=== PATIENT | male | born 1970 | race American Indian/Alaskan Native ===

== ENCOUNTER 2017-10-29 10:36 | Emergency (ER) | payer MEDICARE, MEDICAID ==
[2017-10-29 10:58] VITALS: BMI 37.5
[2017-10-29 11:02] VITALS: RESP 18; O2SAT 98
--- NOTE | 2017-10-29 12:01 | C.PDOC ---
History Of Present Illness Patient is a 47 y/o male, with a Hx of DM and paranoid schizophrenia, who presents to the ED with complaints of left foot pain and left testicular bump. Patient reports left foot pain began about 1 week ago and worsens with ambulation, denies puncture or discharge; reports testicular bump has been present for about 1 year which he is having trouble finding now. Denies any dysuria, penile discharge, testicular pain, or allergies at this time. Time Seen by Provider: 10/29/17 11:15 Chief Complaint (Nursing): Groin Pain History Per: Patient History/Exam Limitations: no limitations Onset/Duration Of Symptoms: Days (left foot pain x1 week; testicular bump x1 year) Current Symptoms Are (Timing): Still Present Recent travel outside of the [place]: No Past Medical History Reviewed: Historical Data, Nursing Documentation, Vital Signs Vital Signs: Last Vital Signs Temp 98 F 10/29/17 14:04 Pulse 76 10/29/17 14:04 Resp 18 10/29/17 14:04 BP 136/72 10/29/17 14:04 Pulse Ox 98 10/29/17 14:04 - Medical History PMH: Anxiety, Depression, Diabetes (new onset), Schizophrenia (PARANOID) Surgical History: No Surg Hx Family History: States: No Known Family Hx - Social History Hx Tobacco Use: No Hx Alcohol Use: No Hx Substance Use: No - Immunization History Hx Tetanus Toxoid Vaccination: No Hx Influenza Vaccination: No Hx Pneumococcal Vaccination: No Review Of Systems Except As Marked, All Systems Reviewed And Found Negative. Constitutional: Negative for: Fever, Chills Cardiovascular: Negative for: Chest Pain Respiratory: Negative for: Shortness of Breath Genitourinary: Positive for: Other (left testicular bump) Musculoskeletal: Positive for: Foot Pain (left) Physical Exam - Physical Exam Additional Physical Exam Comments: Constitutional: No acute distress. Head: Normocephalic. Atraumatic. Eyes: PERRL. ENT: Moist mucous membranes. Neck: Supple. Cardiovascular: Regular rate. Radial pulse 2+ bilaterally. Chest: No tenderness. Respiratory: Clear to auscultation bilaterally. GI: Soft. Nontender. Nondistended. Back: No CVA tenderness. Musculoskeletal: No tenderness or swelling of extremities. Skin: No rash. Wound on plantar aspect of left foot proximal to 4th digit; no discharge, induration, or tenderness. Male Genital: No testicular tenderness or swelling. No pain with palpation. Neurologic: Alert, no focal deficit. ED Course And Treatment O2 Sat by Pulse Oximetry: 98 Progress Note: UA ordered. Medical Decision Making Medical Decision Making: Patient advised to see wound care clinic in [place] for follow up of left foot wound. Will start on antibiotics given diabetes. Vital signs normal. Testicular/ penile exam normal in this chronic complaint. Disposition - Disposition Referrals: [facility] [Outside] Disposition: HOME/ ROUTINE Disposition Time: 13:50 Condition: STABLE Prescriptions: Amoxicillin/Clavulanate [Augmentin 875 MG-125 MG] 1 tab PO BID #20 tab Instructions: Foot Care for Diabetics Forms: Re [employer] (Danish) - Clinical Impression Clinical Impression: Wound of left foot - Scribe Statement The provider has reviewed the documentation as recorded by the Scribe Keyanna Sanchez All medical record entries made by the Scribe were at my direction and personally dictated by me. I have reviewed the chart and agree that the record accurately reflects my personal performance of the history, physical exam, medical decision making, and the department course for this patient. I have also personally directed, reviewed, and agree with the discharge instructions and disposition.
[2017-10-29 12:09] LABS: URINE BILIRUBIN NEGATIVE (NEGATIVE); URINE BLOOD NEGATIVE (NEGATIVE); URINE CLARITY Clear (Clear); URINE COLOR Straw (YELLOW); URINE GLUCOSE (UA) NORMAL (Normal); URINE LEUKOCYTE ESTERASE NEG Leu/uL (Negative); URINE PROTEIN NEGATIVE (NEGATIVE); URINE UROBILINOGEN NORMAL mg/dL (0.2-1.0)
[2017-10-29 14:05] VITALS: BP 136/72; PULSE 76; TEMP 98
== END 2017-10-29 14:05 | disposition home or self-care (01) ==
LOC: C.ER 10:36
DX: S91.302A Unspecified open wound, left foot, initial encounter (principal); X58.XXXA Exposure to other specified factors, initial encounter

== ENCOUNTER 2018-04-03 12:38 | Emergency (ER) | payer MEDICARE, MEDICAID ==
[2018-04-03 12:38] VITALS: BMI 37.5
[2018-04-03 12:49] VITALS: RESP 18; TEMP 98.2; O2SAT 98
[2018-04-03 13:13] VITALS: BP 120/80; PULSE 81
--- NOTE | 2018-04-03 13:34 | C.PDOC ---
History Of Present Illness 47 year old male with a history of paranoid schizophrenia, diabetes, anxiety, and depression presents to the ED for evaluation of nasal congestion for 5 months. Denies fever, nausea, vomiting, and any other associated symptoms. Time Seen by Provider: 04/03/18 12:56 Chief Complaint (Nursing): Cough, Cold, Congestion History Per: Patient History/Exam Limitations: no limitations Onset/Duration Of Symptoms: Days Current Symptoms Are (Timing): Still Present Past Medical History Reviewed: Historical Data, Nursing Documentation, Vital Signs Vital Signs: Last Vital Signs Temp 98.2 F 04/03/18 12:47 Pulse 81 04/03/18 13:12 Resp 18 04/03/18 13:12 BP 120/80 04/03/18 13:12 Pulse Ox 98 04/03/18 13:12 - Medical History PMH: Anxiety, Depression, Diabetes (new onset), Schizophrenia (PARANOID) Family History: States: Unknown Family Hx - Social History Hx Tobacco Use: No Hx Alcohol Use: No Hx Substance Use: No - Immunization History Hx Tetanus Toxoid Vaccination: No Hx Influenza Vaccination: No Hx Pneumococcal Vaccination: No Review Of Systems Constitutional: Negative for: Fever ENT: Positive for: Nose Congestion Gastrointestinal: Negative for: Nausea, Vomiting Physical Exam - Physical Exam Appears: Well, Non-toxic, No Acute Distress Skin: Normal Color, Warm, Dry Head: Atraumatic, Normacephalic, No Tenderness (no tenderness to the maxillary or frontal sinus.) Eye(s): bilateral: Normal Inspection, PERRL, EOMI Ear(s): Bilateral: Normal Nose: Discharge, Other (swollen turbinates/ right > left.) Respiratory: Normal Breath Sounds, No Rales, No Rhonchi, No Wheezing Neurological/Psych: Oriented x3, Normal Speech ED Course And Treatment O2 Sat by Pulse Oximetry: 98 (RA) Pulse Ox Interpretation: Normal Medical Decision Making Medical Decision Making: Progress/Update: 13:03 : Patient stable for discharge home. Advised to take OTC medications. Disposition Counseled Patient/Family Regarding: Diagnosis, Need For Followup - Disposition Referrals: [facility] [Outside] [facility] [Outside] Disposition: HOME/ ROUTINE Disposition Time: 13:03 Condition: STABLE Additional Instructions: SHERI BEAL, thank you for letting us take care of you today. Your provider was Tigist Villanueva MD and you were treated for SOB/CONGESTION. The emergency medical care you received today was directed at your acute symptoms. If you were prescribed any medication, please fill it and take as directed. It may take several days for your symptoms to resolve. Return to the Emergency Department if your symptoms worsen, do not improve, or if you have any other problems. Please contact your doctor or call one of the physicians/clinics you have been referred to that are listed on the Patient Visit Information form that is included in your discharge packet. Bring any paperwork you were given at discharge with you along with any medications you are taking to your follow up visit. Our treatment cannot replace ongoing medical care by a primary care provider outside of the emergency department. Thank you for allowing the [facility] team to be part of your care today. Instructions: Upper Respiratory Infection (ED) Forms: General Discharge Instructions, [employer] (Amharic) - POA Present On Arrival: None - Clinical Impression Clinical Impression: Upper respiratory infection - Scribe Statement The provider has reviewed the documentation as recorded by the Scribe (Jess Nguyen) Provider Attestation: All medical record entries made by the Scribe were at my direction and personally dictated by me. I have reviewed the chart and agree that the record accurately reflects my personal performance of the history, physical exam, medical decision making, and the department course for this patient. I have also personally directed, reviewed, and agree with the discharge instructions and disposition.
== END 2018-04-03 13:13 | disposition home or self-care (01) ==
LOC: C.ER 12:38
DX: J06.9 Acute upper respiratory infection, unspecified (principal)